=== PATIENT | female | born 1950 | race Caucasian/White ===

== ENCOUNTER → 2017-02-25 | Outpatient (CLI) | payer MEDICARE, BC, OTHER ==
[~2017-02-25] MED LIST: ADV100INH INH; ALLE180T33 PO; CALC600T7 PO; FLUTISP; OMEP40CA2 PO; PREM0.452 PO; PROAAER10 IN; VITA100L PO; ZOLO50TA PO
--- NOTE | 2017-02-25 15:49 | REP ---
Left hip two views : There is no fracture or dislocation. Mineralization and joint spaces are normal. There are no calcifications or foreign bodies. Impression: Negative left hip. If symptoms persist or worsen, consider MRI. . Signed by Giovanny Patiño MD 02/25/2017 03:40 P
== END ==
LOC: M WUC 14:38
PROVIDERS: ATTEND Family Medicine
DX: M25.552 Pain in left hip (principal)

== ENCOUNTER → 2017-03-07 | Outpatient (CLI) | payer MEDICARE, BC ==
--- NOTE | 2017-03-07 16:22 | REPMRS ---
Patient History The patient states she had a clinical breast exam in 02/2017. Patient is postmenopausal and is nulliparous. Family history of prostate cancer in father at age 85 and breast cancer in paternal aunt at age 75. Benign excisional biopsy of the left breast. Taking unspecified hormones for 10 years. Digital Woman Screen Mammo: March 07, 2017 - Exam #: [id number] Bilateral CC and MLO view(s) were taken. Technologist: Shanice Tang, Technologist Prior study comparison: January 26, 2016, digital woman screen mammo performed at [facility] [employer]. December 30, 2014, digital woman screen mammo performed at [facility] [employer] [facility]. FINDINGS: There are scattered fibroglandular densities. There is a fairly symmetric fibroglandular pattern in both breasts. There has been no interval development of masses, areas of architectural distortion or clusters of microcalcifications typical of malignancy. ASSESSMENT: BI-RADS/ACR category 2 mammogram. Benign finding(s). Recommendation Routine screening mammogram of both breasts in 1 year (for women over age 40). This mammogram was interpreted with the aid of an FDA-approved computer-aided dectection system. Electronically Signed By: Giovanny Valdez MD 03/07/17 [id number]
== END ==
LOC: M WHC 15:06
PROVIDERS: ATTEND Nurse Practitioner Women's Health
DX: Z01.419 Encounter for gynecological examination (general) (routine) without abnormal findings (principal); Z12.31 Encounter for screening mammogram for malignant neoplasm of breast; Z78.0 Asymptomatic menopausal state; Z79.890 Hormone replacement therapy; Z92.89 Personal history of other medical treatment; R10.32 Left lower quadrant pain; D25.9 Leiomyoma of uterus, unspecified; Z12.12 Encounter for screening for malignant neoplasm of rectum
CPT/HCPCS: 82270; G0101; G0202

== ENCOUNTER → 2017-03-11 | Outpatient (CLI) | payer MEDICARE, BC ==
--- NOTE | 2017-03-11 16:35 | REP ---
Pelvic sonography: History: Left inguinal pain. Uterine leiomyoma. Findings: Transabdominal and transvaginal scanning are performed. Uterine dimensions are normal at 8.1 x 3.2 x 4.9 cm. Endometrial echo is 0.6 cm thick. There are three identifiable uterine fibroids. On the left, there is a 2.7 x 1.7 x 2.4 cm fibroid. Anteriorly on the right, there is a 1.4 x 1.6 x 0.8 cm fibroid. Posteriorly, there is a 1.7 x 1.6 x 1.5 cm subserosal fibroid on the right side. Normal ovaries are seen bilaterally. The right ovary measures 2.2 x 2 6 cm. Left ovary measures 1.3 x 1.5 x 1.1 cm. Impression: Three identifiable uterine fibroids. These are essentially unchanged from comparison study December 27, 2014.
== END ==
LOC: M WHC 12:50
PROVIDERS: ATTEND Nurse Practitioner Women's Health
DX: R10.32 Left lower quadrant pain (principal); D25.9 Leiomyoma of uterus, unspecified

== ENCOUNTER → 2017-11-08 | Outpatient (CLI) | payer MEDICARE, BC | LOC: M WUC 15:34 | DX: R06.02 Shortness of breath (principal) | CPT/HCPCS: 71046 ==

== ENCOUNTER → 2018-06-17 | Outpatient (CLI) | payer MEDICARE, BC ==
--- NOTE | 2018-06-17 13:41 | REPMRS ---
Patient History The patient states she had a clinical breast exam in 06/2018. Patient is postmenopausal and is nulliparous. Family history of prostate cancer at age 85 in father, breast cancer at age 75 in paternal aunt. Benign excisional biopsy of the left breast. Taking unspecified hormones for 11 years. Digital Woman Screen Mammo: June 17, 2018 - Exam #: [id number] Bilateral CC and MLO view(s) were taken. Technologist: Shanice Tang, Technologist Prior study comparison: March 07, 2017, digital woman screen mammo performed at [facility] [employer]. January 26, 2016, digital woman screen mammo performed at [facility] [employer]. December 30, 2014, digital woman screen mammo performed at [facility] [employer]. FINDINGS: There are scattered fibroglandular densities. There has been no change in the appearance of the mammogram from the prior studies. There is a mild amount of scattered fibroglandular density which is fairly symmetric. There is no interval development of dominant mass, architectural distortion, or clustered microcalcification suggestive of malignancy. 3-D tomosynthesis shows no additional findings. Assessment: BI-RADS/ACR category 1 mammogram. Negative. Recommendation Routine screening mammogram of both breasts in 1 year (for women over age 40). This patient's Lifetime Breast Cancer RIsk is estimated at 11.2 %. This mammogram was interpreted with the aid of an FDA-approved computer-aided dectection system. Electronically Signed By: Zhang Barber MD 06/17/18 [id number]
== END ==
LOC: M WHC 11:03
PROVIDERS: ATTEND Nurse Practitioner Women's Health
DX: Z01.419 Encounter for gynecological examination (general) (routine) without abnormal findings (principal); Z12.31 Encounter for screening mammogram for malignant neoplasm of breast; Z78.0 Asymptomatic menopausal state; Z92.29 Personal history of other drug therapy; Z86.018 Personal history of other benign neoplasm
CPT/HCPCS: 77063; 77067; G0101

== ENCOUNTER → 2019-06-23 | Outpatient (CLI) | payer MEDICARE, BC, OTHER ==
[~2019-06-23] MED LIST changes: +FLUT50SP12; -FLUTISP; -OMEP40CA2 PO; +OMEP40CA97 PO
--- NOTE | 2019-07-08 11:11 | DEXA ---
AP SPINE L1 - L4 0.975 -1.8 -0.1 LT FEMUR TOTAL 0.862 -1.2 0.2 LT NECK 0.843 -1.4 0.2 RT FEMUR TOTAL 0.932 -0.6 0.7 RT NECK 0.858 -1.3 0.3 TOTAL BODY TOTAL OTHER COMMENTS: There is low bone density of the spine and hips. The density of the spine has decreased 0.9% since the initial exam on 08/27/2008. The spine density has decreased 1.9% since the most recent exam on 12/03/2012. The density of the left hip has increased 4.0% since the initial exam on 08/27/2008. The density of the left hip has increased 3.5% since the most recent exam on 12/03/2012. The density of the right hip has increased 1.5% since the initial exam on 08/27/2008. The density of the right hip has increased 2.4% since the most recent exam on 12/03/2012. FOLLOW-UP: Recommendation for the next bone density exam: 2 years. JANKID
== END ==
LOC: M WHC 12:58
PROVIDERS: ATTEND Family Medicine
DX: M85.89 Other specified disorders of bone density and structure, multiple sites (principal)

== ENCOUNTER → 2019-07-21 | Outpatient (CLI) | payer MEDICARE, BC | LOC: M PLALAB 12:40 | PROVIDERS: ATTEND Nurse Practitioner Women's Health | DX: Z80.3 Family history of malignant neoplasm of breast (principal) ==

== ENCOUNTER → 2019-07-21 | Outpatient (CLI) | payer MEDICARE, BC ==
--- NOTE | 2019-07-21 14:24 | REPMRS ---
Patient History The patient states she had a clinical breast exam in 2019. Family history of prostate cancer at age 85 in father, breast cancer at age 75 in paternal aunt. Benign excisional biopsy of the left breast. Taking unspecified hormones for 11 years. Digital Woman Screen Mammo: July 21, 2019 - Exam #: [id number] Bilateral CC and MLO view(s) were taken. Technologist: Deepa Amador, Technologist Prior study comparison: June 17, 2018, bilateral digital woman screen mammo performed at [facility]. March 07, 2017, digital woman screen mammo performed at [facility]. January 26, 2016, digital woman screen mammo performed at [facility]. FINDINGS: There are scattered fibroglandular densities. There is a stable nodular opacity laterally in the right breast unchanged from multiple prior studies. A needle biopsy marker clip is again noted in the left breast. There has been no change in the appearance of the mammogram from the prior studies. There is a mild amount of scattered fibroglandular density which is fairly symmetric. There is no interval development of dominant mass, architectural distortion, or grouped microcalcification suggestive of malignancy. 3-D tomosynthesis shows no additional findings. Assessment: BI-RADS/ACR category 2 mammogram. Benign Findings. Recommendation Routine screening mammogram of both breasts in 1 year (for women over age 40). This patient's Lifetime Breast Cancer Risk is estimated at 10.6 %. This mammogram was interpreted with the aid of an FDA-approved computer-aided dectection system. Electronically Signed By: Zhang Barber MD 07/21/19 [id number]
== END ==
LOC: M WHC 11:41
PROVIDERS: ATTEND Nurse Practitioner Women's Health
DX: Z01.419 Encounter for gynecological examination (general) (routine) without abnormal findings (principal); Z12.31 Encounter for screening mammogram for malignant neoplasm of breast; Z80.42 Family history of malignant neoplasm of prostate; Z86.018 Personal history of other benign neoplasm; Z92.29 Personal history of other drug therapy; Z80.3 Family history of malignant neoplasm of breast
CPT/HCPCS: 36415; 77063; 77067; G0101

== ENCOUNTER → 2020-08-10 | Outpatient (CLI) | payer MEDICARE, BC ==
[~2020-08-10] MED LIST changes: +CALC-212 PO; -CALC600T7 PO
--- NOTE | 2020-08-10 16:15 | REPMRS ---
Patient History The patient states she had a clinical breast exam in 08/2020 Patient is postmenopausal and is nulliparous. Family history of prostate cancer at age 85 in father, breast cancer at age 75 in paternal aunt. Benign excisional biopsy of the left breast. Taking unspecified hormones for 12 years. 3D TOMOSYNTHESIS WAS PERFORMED. The [facility] lifetime risk for breast cancer is 10.0%. Volpara breast density b. Digital Woman Screen Mammo: August 10, 2020 - Exam #: [id number] Bilateral CC and MLO view(s) were taken. Technologist: Linda Timmons, Technologist Prior study comparison: July 21, 2019, bilateral digital woman screen mammo performed at [facility]. June 17, 2018, bilateral digital woman screen mammo performed at [facility]. FINDINGS: There are scattered fibroglandular densities. There has been no change in the appearance of the mammogram from the prior studies. There is a mild amount of residual fibroglandular tissue which is fairly symmetric. There is no interval development of dominant mass, architectural distortion, or clustered microcalcification suggestive of malignancy. Assessment: BI-RADS/ACR category 1 mammogram. Negative Mammogram. Recommendation Routine screening mammogram in 1 year (for women over age 40). This mammogram was interpreted with the aid of an FDA-approved computer-aided dectection system. Electronically Signed By: Giovanny Valdez MD 08/10/20 [id number]
== END ==
LOC: M WHC 14:51
PROVIDERS: ATTEND Nurse Practitioner Women's Health
DX: Z01.419 Encounter for gynecological examination (general) (routine) without abnormal findings (principal); Z12.31 Encounter for screening mammogram for malignant neoplasm of breast; Z78.0 Asymptomatic menopausal state; Z86.018 Personal history of other benign neoplasm; Z92.29 Personal history of other drug therapy
CPT/HCPCS: 77063; 77067; G0101

== ENCOUNTER → 2021-01-31 | Outpatient (CLI) | payer MEDICARE, BC, OTHER ==
[~2021-01-31] MED LIST changes: +OMEP40CA4 PO; -OMEP40CA97 PO
--- NOTE | 2021-01-31 11:00 | REP ---
INDICATION: HX OF NICOTINE DEPENDENCE COMPARISON: None. TECHNIQUE: Axial noncontrast images from the thoracic inlet to the upper abdomen using low-dose lung screening technique (LDCT). FINDINGS: Lung lopez are well aerated, essentially symmetric and clear. Few small densities measuring no greater than 2-3 mm are identified and nonspecific. No consolidation, suspicious nodule or mass. No effusion. No pneumothorax. IMPRESSION: Lung-RADS category 2. Management recommendations include annual low-dose CT surveillance. <Electronically signed by Pepe Larkin > 01/31/21 [id number]
== END ==
LOC: M RAD 10:08
PROVIDERS: ATTEND Family Medicine
DX: Z87.891 Personal history of nicotine dependence (principal); R91.8 Other nonspecific abnormal finding of lung field

== ENCOUNTER → 2021-07-11 | Outpatient (CLI) | payer MEDICARE, BC, OTHER ==
[~2021-07-11] MED LIST changes: +METHACHOLINE KIT (J7674) INH ONE
== END ==
LOC: M CARPUL 10:02
PROVIDERS: ATTEND Physician Assistant
DX: R06.00 Dyspnea, unspecified (principal)
CPT/HCPCS: 94070; 95070; J7674

== ENCOUNTER → 2022-01-15 | Outpatient (CLI) | payer MEDICARE, BC, OTHER ==
[~2022-01-15] MED LIST changes: -METHACHOLINE KIT (J7674) INH ONE
== END ==
LOC: M WHC 15:01
PROVIDERS: ATTEND Obstetrics & Gynecology
DX: Z12.31 Encounter for screening mammogram for malignant neoplasm of breast (principal)

== ENCOUNTER → 2022-03-06 | Outpatient (CLI) | payer MEDICARE, BC, OTHER | LOC: M RAD 14:27 | PROVIDERS: ATTEND Physician Assistant | DX: R91.8 Other nonspecific abnormal finding of lung field (principal); Z87.891 Personal history of nicotine dependence ==

== ENCOUNTER → 2022-11-09 | Outpatient (CLI) | payer MEDICARE, BC, OTHER | LOC: M WUC 13:57 | PROVIDERS: ATTEND Nurse Practitioner Family | DX: S33.6XXA Sprain of sacroiliac joint, initial encounter (principal); X58.XXXA Exposure to other specified factors, initial encounter; Y92.89 Other specified places as the place of occurrence of the external cause; Y93.89 Activity, other specified; Y99.8 Other external cause status ==

== ENCOUNTER → 2023-01-18 | Outpatient (CLI) | payer MEDICARE, BC, OTHER | LOC: M WHC 15:07 | PROVIDERS: ATTEND Obstetrics & Gynecology | DX: Z12.31 Encounter for screening mammogram for malignant neoplasm of breast (principal) ==

== ENCOUNTER → 2023-03-21 | Outpatient (CLI) | payer MEDICARE, BC, OTHER | LOC: M RAD 13:38 | PROVIDERS: ATTEND Physician Assistant | DX: Z12.2 Encounter for screening for malignant neoplasm of respiratory organs (principal); Z87.891 Personal history of nicotine dependence ==

== ENCOUNTER → 2024-03-26 | Outpatient (REF) | payer MEDICARE, BC | LOC: M PLALAB 13:52 | PROVIDERS: ATTEND Obstetrics & Gynecology | DX: Z01.419 Encounter for gynecological examination (general) (routine) without abnormal findings (principal) ==

== ENCOUNTER → 2024-03-26 | Outpatient (CLI) | payer MEDICARE, BC | LOC: M WHC 14:28 | PROVIDERS: ATTEND Obstetrics & Gynecology | DX: Z12.31 Encounter for screening mammogram for malignant neoplasm of breast (principal); R92.323 Mammographic fibroglandular density, bilateral breasts ==

== ENCOUNTER → 2024-05-11 | Outpatient (CLI) | payer MEDICARE, BC ==
[~2024-05-11] MED LIST changes: -ADV100INH INH; +ADVA1AER8 INH
== END ==
LOC: M RAD 14:22
PROVIDERS: ATTEND Physician Assistant
DX: Z12.2 Encounter for screening for malignant neoplasm of respiratory organs (principal); Z87.891 Personal history of nicotine dependence

== ENCOUNTER → 2024-05-13 | Outpatient (CLI) | payer MEDICARE, BC | LOC: M PLAIMG 12:55 | PROVIDERS: ATTEND Physician Assistant Medical | DX: J32.4 Chronic pansinusitis (principal); J34.89 Other specified disorders of nose and nasal sinuses ==

== ENCOUNTER → 2024-10-01 | Day surgery (SDC) | payer MEDICARE, BC ==
[~2024-10-01] VITALS: Ht 154.9 cm; Wt 58.0 kg
[~2024-10-01] MED LIST changes: +ACETAMINOPHEN 1000MG/100ML IV BAG As Ordered ONE; +AZEL1SPR3; +D 101000 PO; +FAMO20TA PO; +FLUT1BLS2 INH; +FLUT1BLS5 INH; +FLUTISP; +LIDOCAINE 2% 100MG/5ML SDV (FOR ANES.) As Ordered ONE; +LR 1,000 ML IV SCH; +MEPERIDINE 25 MG/ML 1ML VIAL IV PRN; +METOCLOPRAMIDE INJ 10MG/2ML VIAL IV PRN; +OCUV1CHW PO; +ONDANSETRON 4MG 2ML VIAL As Ordered ONE; +ONDANSETRON 4MG 2ML VIAL IV PRN; +PREM0.3T2 PO; +ROCURONIUM BROMIDE 50MG/5ML VIAL As Ordered ONE; +SERT50TA29 PO; +SUGAMMADEX SODIUM 500 MG/5 ML VIAL (BRIDION) As Ordered ONE; +TRAZ1TAB11 PO; +diphenhydrAMINE 50MG/ML VIAL IV PRN; +fentaNYL 100 MCG/2 ML INJECTION As Ordered ONE; +fentaNYL 100 MCG/2 ML INJECTION IV PRN; +oxyCODONE 5MG TAB PO PRN; +propofoL 200 MG/20 ML VIAL As Ordered ONE
[2024-10-01] MEDS: SCOPOLAMINE 1MG TRANSDERMAL PATCH As Ordered ONE (11:07)
[2024-10-01] MEDS: METHYLENE BLUE 0.5% (5MG/ML) 10 ML AMP (PROVAYBLUE) As Ordered ONE (11:25)
[2024-10-01] MEDS: EPINEPHrine 1MG/ML INJ 30ML MD-VIAL As Ordered ONE (11:25)
[2024-10-01] MEDS: SODIUM CHLORIDE 0.9% NASAL GEL 15GM (AYR) As Ordered ONE (12:06)
[2024-10-01] MEDS: LIDOCAINE W/EPINEPHRINE 1% 20ML VIAL As Ordered ONE (12:20)
[2024-10-01 13:30] VITALS: BP 161/68; TEMP 97.8; O2SAT 98
== END | disposition home or self-care (01) ==
LOC: M SDC 08:12
PROVIDERS: ATTEND Otolaryngology
DX: J32.2 Chronic ethmoidal sinusitis (principal); J32.0 Chronic maxillary sinusitis; J31.0 Chronic rhinitis; J44.89 Other specified chronic obstructive pulmonary disease; J45.20 Mild intermittent asthma, uncomplicated; K21.9 Gastro-esophageal reflux disease without esophagitis; Z79.899 Other long term (current) drug therapy; Z79.51 Long term (current) use of inhaled steroids; Z79.890 Hormone replacement therapy; F41.9 Anxiety disorder, unspecified; Z87.891 Personal history of nicotine dependence
CPT/HCPCS: 31255; 31267; 61782; 88305; C2625; J0131; J0171; J1100; J2405; J3010; Q9968

== ENCOUNTER 2025-01-11 08:56 | Day surgery (SDC) | payer MEDICARE, BC ==
[~2025-01-11] VITALS: Ht 154.9 cm; Wt 56.8 kg
[~2025-01-11 08:56] MED LIST changes: -ACETAMINOPHEN 1000MG/100ML IV BAG As Ordered ONE; -LIDOCAINE 2% 100MG/5ML SDV (FOR ANES.) As Ordered ONE; -LR 1,000 ML IV SCH; -MEPERIDINE 25 MG/ML 1ML VIAL IV PRN; -METOCLOPRAMIDE INJ 10MG/2ML VIAL IV PRN; -ONDANSETRON 4MG 2ML VIAL As Ordered ONE; -ONDANSETRON 4MG 2ML VIAL IV PRN; -ROCURONIUM BROMIDE 50MG/5ML VIAL As Ordered ONE; -SUGAMMADEX SODIUM 500 MG/5 ML VIAL (BRIDION) As Ordered ONE; -diphenhydrAMINE 50MG/ML VIAL IV PRN; -fentaNYL 100 MCG/2 ML INJECTION As Ordered ONE; -fentaNYL 100 MCG/2 ML INJECTION IV PRN; -oxyCODONE 5MG TAB PO PRN; -propofoL 200 MG/20 ML VIAL As Ordered ONE
[2025-01-11 09:47] VITALS: TEMP 97.6
[2025-01-11 10:10] VITALS: BP 117/58; O2SAT 99
== END 2025-01-11 10:11 | disposition home or self-care (01) ==
LOC: M OPP 08:56
PROVIDERS: ATTEND Internal Medicine Gastroenterology
DX: Z12.11 Encounter for screening for malignant neoplasm of colon (principal); K64.0 First degree hemorrhoids; K57.30 Diverticulosis of large intestine without perforation or abscess without bleeding; K44.9 Diaphragmatic hernia without obstruction or gangrene; R12 Heartburn; Z79.51 Long term (current) use of inhaled steroids; Z79.899 Other long term (current) drug therapy
CPT/HCPCS: 43239; 88305; G0121

== ENCOUNTER → 2025-01-20 | Outpatient (CLI) | payer MEDICARE, BC | LOC: M WUC 10:56 | PROVIDERS: ATTEND Family Medicine | DX: S19.9XXA Unspecified injury of neck, initial encounter (principal); M43.5X2 Other recurrent vertebral dislocation, cervical region; X58.XXXA Exposure to other specified factors, initial encounter; Y92.9 Unspecified place or not applicable; Y93.9 Activity, unspecified; Y99.9 Unspecified external cause status ==

== ENCOUNTER → 2025-03-31 | Outpatient (CLI) | payer MEDICARE, BC | LOC: M WHC 09:01 | PROVIDERS: ATTEND Obstetrics & Gynecology | DX: Z12.31 Encounter for screening mammogram for malignant neoplasm of breast (principal); R92.323 Mammographic fibroglandular density, bilateral breasts ==